=== PATIENT | male | born 1950 | race Caucasian/White ===

== ENCOUNTER 2024-06-10 14:38 | Emergency (ER) | payer OTHER, SELFPAY ==
[2024-06-10] VITALS (8 sets, daily range): BP systolic 113–152; BP diastolic 65–86; PULSE 60–80; RESP 13–19; TEMP 36.8–36.9; O2SAT 99–100
--- NOTE | ~2024-06-10 | CT_ITS ---
EXAMINATION: CT cervical spine wo con DATE: 06/10/2024 17:17 INDICATION: Fall with head injury and upper back pain TECHNIQUE: Computed tomography (CT) of the cervical spine was performed without intravenous contrast. Automated exposure control and iterative reconstruction technique were employed. The dose-length pro duct was 552.44 mGy-cm. COMPARISON: None FINDINGS: C6 and C7 laminectomies and partial T1 laminectomy. C3-C7 anterior spinal fusion with anterior plate and screw fixation at C3-C5. Lucent tracts for a since removed screws at C6 and on the left at C7 wit h residual retained right-sided screw fragment at C7. There is also instrumented C5-T2 posterior spin al fusion with bilateral vertical rods with bilateral lateral mass screws at C5 and C6 and bilateral pedicle screws at T1 and T2. Bone alignment is normal. Unfused vertebral body heights are normal. No acute fracture. Mild disc height loss at C2-C3 and C7-T1 through T2-T3. Multilevel moderate cervical facet osteoarthritis with additional fusion across the margins of the bilateral C3-C4 and C4-C5 facet joints. Mild central canal stenosis at C2-C3, C3-C4 and C4-C5. Mild bilateral neural foraminal steno sis at C6-C7. 7 mm nodule at the posterior right apex. Goiter. Cervical soft tissues are otherwise un remarkable. IMPRESSION: 1. Mild cervical spondylosis with postoperative change including laminectomies and instrumented anter ior and posterior spinal fusion as detailed above. No acute osseous abnormality. 2. 7 mm right apical nodule. Recommend 6-12 month follow-up low-dose noncontrast chest CT. Reviewed, dictated and finalized at location A. IMPRESSION: 1. Mild cervical spondylosis with postoperative change including laminectomies and instrumented anterior and posterior spinal fusion as detailed above. No acu te osseous abnormality. 2. 7 mm right apical nodule. Recommend 6-12 month follow-up low-dose noncontras t chest CT.
--- NOTE | ~2024-06-10 | CT_ITS ---
EXAMINATION: CT thoracic lumbar wo con DATE: 06/10/2024 17:17 INDICATION: Back pain post fall TECHNIQUE: Computed tomography (CT) of the thoracic and lumbar spine was performed without intravenou s contrast. Sagittal and coronal reconstructions were performed. Automated exposure control and itera tive reconstruction technique were employed. The dose-length product was 1566.08 mGy-cm. COMPARISON: None FINDINGS: Thoracic spine: 12 degrees upper thoracic levoscoliosis. Sagittal alignment is normal. Partial T1 laminectomy. Partia lly visualized cervicothoracic posterior spinal fusion with bilateral vertical rods and pedicle screw s at T1 and T2. See separate cervical spine CT report for further detail. Vertebral body heights are normal. No fracture. Severe disc height loss at T4-T5, moderate to severe disc height loss at T5-T6 a nd T6-T7, moderate disc height loss at T8-T9, T9-T10 and T10-T11 and mild disc height loss at the rem aining thoracic levels. Small disc bulges resulting in mild central canal stenosis at T8-T9. There is some ossification at the ligamentum flavum also contributing to mild central canal stenosis at T10-T 11. Mild to moderate multilevel thoracic facet osteoarthritis. There is minimal to mild neural forami nal stenosis at a few levels in the thoracic spine. Paravertebral soft tissues are unremarkable aside from the postoperative scarring posterior to the uppermost thoracic spine. 7 mm indeterminate right apical nodule for which 6-12 month low-dose noncontrast chest CT follow-up would be recommended. 9 mm nodule at the superior segment of the right lower lobe with central calcification consistent with ol d granulomatous disease. There are a few additional tiny calcified nodules in both lower lobes most c onsistent with old granulomatous disease. Lumbar spine: Alignment is normal. L3-S1 anterior and posterior spinal fusion with interbody fusion device at each level and with bilateral vertical chepe and pedicle screw fixation at L3-L5. There is also suggestion o f posterior decompression with laminectomies at L3-L4, L4-L5 and on the left at L5-S1. Bone graft liam vest sites at the bilateral posterior iliac spines. Unfused vertebral body heights are normal. No acu te fracture. Unfused upper lumbar disc spaces are normal. Mild disc bulge at L2-L3. Mild central bouchra l stenosis. Moderate facet osteoarthritis at the unfused lumbar levels. Moderate neural foraminal zach nosis bilaterally at L2-L3 and mild neural from stenosis bilaterally at L3-L4. There are few sigmoid diverticula without adjacent inflammatory stranding to suggest diverticulitis. Prostatomegaly. IMPRESSION: 1. Thoracic and lumbar spondylosis and postoperative change of the cervicothoracic and mid to lower l umbar spine as detailed above. No acute osseous abnormality. Reviewed, dictated and finalized at location A. IMPRESSION: 1. Thoracic and lumbar spondylosis and postoperative change of the cervicothora cic and mid to lower lumbar spine as detailed above. No acute osseous abnormali ty.
--- NOTE | ~2024-06-10 | CT_ITS ---
EXAMINATION: CT brain wo con DATE: 06/10/2024 17:17 INDICATION: Fall with head injury TECHNIQUE: Computed tomography (CT) of the head was performed without intravenous contrast. Sagittal and coronal reconstructions were performed. The mA was adjusted according to patient size. Iterative reconstruction technique was employed. The dose-length product was 605.33 mGy-cm. COMPARISON: 11/05/2011 FINDINGS: No fracture. No acute intracranial hemorrhage, acute infarction or abnormal extra axial fluid collect ion. Ventricles are normal and symmetric. No mass/mass effect. Mild mucosal thickening the right ethm oid sinus and small amount of dependently layering fluid/mucus in the left maxillary sinus The orbits and mastoid air cells are normal. IMPRESSION: 1. No fracture or acute intracranial process. Reviewed, dictated and finalized at location A.
[2024-06-10] MEDS: HYDROcodone/acetaminophen (*CRX) 5-325 MG TABLET 2 TAB PO (16:53)
[2024-06-10] MEDS: methocarbamoL 750 MG TABLET PO (16:54)
--- NOTE | 2024-06-10 18:38 | ED.GENADULT ---
HPI - General Adult General Chief complaint: Fall Stated complaint: fell 2 days ago, back raven Time Seen by Provider: 06/10/24 16:07 History of Present Illness HPI narrative: This is a 73-year-old male with history of cervical and lumbar fusion presenting after a fall. Patient lost his balance it is driveway and fell backwards landing on his rear end and then falling backwards and striking his head. Since then he has been having pain radiating throughout his entire body. He is concerned that he may have broken the hardware in either his cervical spine or lumbar spine. He does not have any weakness in any extremities. And he does not have any urinary retention bowel incontinence or saddle anesthesia. Patient has not taken anything for pain control. Related Data Home Medications Medication Instructions Recorded Confirmed amlodipine 10 mg-valsartan 320 mg 1 tablet PO DAILY 10/25/19 10/25/19 tablet bisacodyl 5 mg tablet 5 mg PO BID PRN Constipation 10/25/19 10/25/19 ibuprofen 600 mg tablet 600 mg PO TID PRN Pain 10/25/19 10/25/19 metformin 500 mg tablet 500 mg PO BID 10/25/19 10/25/19 metoprolol tartrate 50 mg tablet 50 mg PO Q12H 10/25/19 10/25/19 sumatriptan succinate 25 mg tablet 0 mg PO .COMPLEX PRN Migraine 10/25/19 10/25/19 Headache fentanyl 25 mcg/hr transdermal 1 patch transdermal Q72H 10/28/19 10/28/19 patch Allergies Allergy/AdvReac Type Severity Reaction Status Date / Time Corticosteroids Allergy Unknown Unknown Verified 06/10/24 15:28 (Glucocorticoids) cortisone Allergy Unknown Unknown Verified 06/10/24 15:28 [facility], [facility] Past Medical History Medical History Bowel obstruction BPH associated with nocturia (Unknown) Degenerative disc disease Fractures rt ankle Hyperlipidemia No longer on medication due to adverse side effects. Hypertension Migraines Mitral valve prolapse Type 2 diabetes mellitus (Unknown) Hemoglobin A1c was 5.5 in October 2018. Surgical History Surgical History H/O exploratory laparotomy with adhesiolysis H/O removal of testicle rt H/O Spinal surgery multiple with spinal chepe implacement History of intestinal surgery Hx of spinal fusion Hx of total knee arthroplasty rt Family History Family History Father Acute myocardial infarction Hypertension Family history of alcoholism Social History Social History Social History: The patient lives in [place]. He designates his girlfriend, Ramya, as his surrogate decision maker and he wishes to be a full code. Smoked up to 2 packs of cigarettes a day and quit 25+ years ago. No alcohol or drug abuse. Smoking packs per day: 2 Smoking cigarettes per day: 40.0 Years smoked: 20 Smoking pack-years: 40.00 Smoking status: Former smoker Tobacco type: cigarettes Second hand tobacco smoke exposure: No Alcohol intake: current Drinks per week: 1 Substance use type: does not use Gender identity (if verbalized by the patient): Male Spiritual care concerns: No Agree to blood products: Yes Exam Narrative: APPEARANCE: Patient is anxious, he is pacing back and forth in the room Head: atraumatic. EYES: EOMI, NOSE: Atraumatic NECK: Well-healed surgical scars over the cervical spine and lumbar spine. No point tenderness. No tenderness in the paraspinal muscles. RESPIRATORY: No increased rate of breathing CARDIOVASCULAR: RRR, ABDOMINAL: Non-distended MUSCULOSKELETAl: No obvious deformities NEURO: Alert. Cranial nerves 2-12 grossly intact. Sensation light touch, motor function cerebellar function intact for 4 extremities. Gait exam was normal. SKIN:: Warm, dry. Normal color PSYCHIATRIC: Normal affect Course Vital Signs Vital signs: Vital Signs Pulse Oximetry 99 06/10/24
--- NOTE | 2024-06-10 18:47 | PC.NURSE ---
Report Given to Kasey Garcia RN. All questioned answered by this RN.
== END 2024-06-10 19:25 | disposition home or self-care (01) ==
PROVIDERS: Emergency Provider Emergency Medicine; PCP Student in an Organized Health Care Education/Training Program
DX: S09.90XA Unspecified injury of head, initial encounter (principal); I10 Essential (primary) hypertension; I34.1 Nonrheumatic mitral (valve) prolapse; E78.5 Hyperlipidemia, unspecified; E11.9 Type 2 diabetes mellitus without complications; N40.1 Benign prostatic hyperplasia with lower urinary tract symptoms; R35.1 Nocturia; Z98.1 Arthrodesis status; Z96.651 Presence of right artificial knee joint; Z87.891 Personal history of nicotine dependence; Z90.79 Acquired absence of other genital organ(s); Z79.899 Other long term (current) drug therapy; Z79.84 Long term (current) use of oral hypoglycemic drugs; M47.816 Spondylosis without myelopathy or radiculopathy, lumbar region; M47.814 Spondylosis without myelopathy or radiculopathy, thoracic region; W18.39XA Other fall on same level, initial encounter
CPT/HCPCS: 70450; 72125; 72128; 72131; 99284; A9270